=== PATIENT | female | born 1985 | race Hispanic/Latino ===

== ENCOUNTER 2019-01-05 18:55 | Emergency (ER) | payer OTHER ==
[2019-01-05 19:24] VITALS: BMI 25.6
[2019-01-05] MEDS ORDERED: Lactated Ringer's 1,000 ML IV SCH (20:15)
[2019-01-05 20:26] LABS: BASO % 0.2 % (0.0-2.0); EOS % 0.1 % (0.0-4.0); HEMOGLOBIN 11.8 g/dL (12.0-16.0); LYMPH # 1.1 K/uL (1.0-4.3); LYMPH % 7.3 % (20.0-40.0); MEAN CELL VOLUME 87.4 fl (81.0-99.0); MEAN CORPUSCULAR HGB CONC 33.1 g/dL (33.0-37.0); MEAN PLATELET VOLUME 8.1 fl (7.2-11.7); MONO # 0.8 K/uL (0.0-0.8); MONO % 5.5 % (0.0-10.0); NEUT # 12.9 K/uL (1.8-7.0); NEUT % 86.9 % (50.0-75.0); PLATELET COUNT 149 K/uL (130-400); RBC 4.06 Mil/uL (3.80-5.20); RED CELL DISTRIBUTION WIDTH 14.5 % (11.5-14.5); WHITE BLOOD COUNT 14.9 K/uL (4.8-10.8)
[2019-01-05 20:35] LABS: ALB/GLOB RATIO 1.3 (1.0-2.1); ALBUMIN 3.8 g/dL (3.5-5.0); ALT/SGPT 18 U/L (9-52); AMYLASE 84 U/L (30-110); AST/SGOT 21 U/L (14-36); BLOOD UREA NITROGEN 7 mg/dl (7-17); CALCIUM 8.6 mg/dL (8.4-10.2); GFR NON-AFRICAN AMERICAN > 60; LIPASE 61 U/L (23-300)
[2019-01-05 20:58] LABS: EOSINOPHIL 1 % (0-7); LYMPHOCYTE 8 % (20-50); MONOCYTE 3 % (0-10); NEUTROPHIL 86 % (42-75); TOTAL CELLS COUNTED 100
[2019-01-05 20:59] LABS: BANDS 2 % (0-2); HYPOCHROMIC SLIGHT; PLATELET ESTIMATE NORMAL (NORMAL)
[2019-01-06 01:47] VITALS: BP 104/67; PULSE 100; TEMP 97.9; O2SAT 100
--- NOTE | 2019-01-06 12:23 | OBHP ---
Datetime: 01/05/2019 23:14 IP Adm Impression: Term, intrauterine ; No Active Labor IP Admit Plan: Observation/Evaluation; Discharge home Admit Comment, IP Provider: 33-year-old -0-0-2 at 35 weeks gestational age complains of episode of nausea and vomiting and diarrhea after eating dinner approximately 2 hours ago. Patient denies a ny fevers or chills, contractions, vaginal bleeding, leakage of fluids. Patient reports that she is not nauseous at this time. Past medical history denies Past surgical history , laparoscopy Medications denies No known drug allergies Obstetrical history x1, x1 Social history denies tobacco, drugs, alcohol Physical exam unremarkable, refer to physical exam findings Assessment: G3, P2 at 35 weeks gestational age with gastroenteritis, heart tracing category 1, no eviden ce of labor at this time, normal labs Plan: Patient discharged home with labor precautions. Patient will follow-up this week as marilynn martinez Pelvic Type - PN: Adequate Extremities - PN: Normal Abdomen - PN: Normal Back - PN: Normal Breast - PN: Normal Lungs - PN: Normal Heart - PN: Normal Thyroid - PN: Normal Neurologic - PN: Normal HEENT - PN: Normal General - PN: Normal FHR - Baseline A Provider: 120s-130s Membranes, Provider: Intact Contraction Comments Provider: q2-5min EGA AdmitDate IP: 35.0 Vital Signs Provider: Reviewed; Within Normal Limits IP Chief Complaint: Illness; Maternal discomfort NICHD Variability Prov Fetus A: Moderate 6-25bpm NICHD Accel Fetus A IP Provider: 15X15 FHR Category Provider Fetus A: Category I NICHD Decel Fetus A IP Provider: None Dilatation, Provider: 1 Effacement, Provider: long Station, Provider: high Genitourinary Exam: Normal DTRs - PN: Normal
== END 2019-01-05 21:35 | disposition home or self-care (01) ==
LOC: H.EROB2 18:55
DX: O26.93 Pregnancy related conditions, unspecified, third trimester (principal); K52.9 Noninfective gastroenteritis and colitis, unspecified; Z3A.35 35 weeks gestation of pregnancy; O47.03 False labor before 37 completed weeks of gestation, third trimester
CPT/HCPCS: 80053; 82150; 83690; 85025; 99283; J7120

== ENCOUNTER 2019-02-04 18:24 | Inpatient (IN) | payer OTHER ==
[2019-02-04 19:10] VITALS: BMI 26.0
[2019-02-04] MEDS ORDERED: AMPicillin 2 GM in Sodium Chloride 0.9% 100 ML IVPB ONE (19:10)
[2019-02-04] MEDS ORDERED: AMPicillin 1 GM in Sodium Chloride 0.9% 100 ML IVPB SCH (19:15)
--- NOTE | 2019-02-04 19:21 | OBADHP ---
Datetime: 02/04/2019 19:15 Admit Comment, IP Provider: A: 39 1/7 wk, early active labor TOALC, HX successful FHT cat 1 BOW intact, GBS pos, NKDA pt coping with labor Low risk CNM client in collaboration with physician PRN for TOLAC P: Admit to L_D Continuous EFM IV to saline lock Amp 2 gm bolus, Amp 1gm Q4 hr thereafter PRN until delivery Ambulate as desires Anticipate more active labor and Nan Malcolm CNM Pelvic Type - PN: Adequate Extremities - PN: Normal Abdomen - PN: Normal Back - PN: Normal Breast - PN: Normal Lungs - PN: Normal Heart - PN: Normal Thyroid - PN: Normal Neurologic - PN: Normal HEENT - PN: Normal General - PN: Normal Presentation-Admit: Vertex FHR - Baseline A Provider: 125 Membranes, Provider: Intact Contraction Comments Provider: q3-4 min IP Hx Assessment: The History has been Reviewed and is Current Vital Signs Provider: Reviewed IP Chief Complaint: Uterine contractions; Other NICHD Variability Prov Fetus A: Moderate 6-25bpm NICHD Accel Fetus A IP Provider: [id number] FHR Category Provider Fetus A: Category I NICHD Decel Fetus A IP Provider: None Dilatation, Provider: 4 Effacement, Provider: 80 Station, Provider: -1 Genitourinary Exam: Normal DTRs - PN: Normal EGA AdmitDate IP: 39.1 IP Adm Impression: Term, intrauterine ; Active labor IP Admit Plan: Admit to unit; Initiate labor protocol
[2019-02-04 19:44] LABS: BASO % 0.4 % (0.0-2.0); EOS % 0.4 % (0.0-4.0); HEMOGLOBIN 11.5 g/dL (12.0-16.0); LYMPH # 1.6 K/uL (1.0-4.3); LYMPH % 18.1 % (20.0-40.0); MEAN CELL VOLUME 85.4 fl (81.0-99.0); MEAN CORPUSCULAR HEMOGLOBIN 28.6 pg (27.0-31.0); MEAN CORPUSCULAR HGB CONC 33.5 g/dL (33.0-37.0); MEAN PLATELET VOLUME 8.4 fl (7.2-11.7); MONO # 0.5 K/uL (0.0-0.8); MONO % 5.8 % (0.0-10.0); NEUT # 6.6 K/uL (1.8-7.0); NEUT % 75.3 % (50.0-75.0); NRBC % 0.2 % (0.0-0.0); RBC 4.03 Mil/uL (3.80-5.20); RED CELL DISTRIBUTION WIDTH 15.9 % (11.5-14.5); WHITE BLOOD COUNT 8.7 K/uL (4.8-10.8)
--- NOTE | 2019-02-04 20:48 | OBPN ---
Datetime: 02/04/2019 20:15 IP Progress Impression: Normal progression of labor IP Informed Consent Obtain: Vaginal After IP Progress Plan: Continue present management Contraction Comments Provider: stronger when walking FHR - Baseline A Provider: 125 IP Progress Note Comment: A: Normal progress of labor- cervix moving more anterior and thinning FHT cat 1 P: CNM held cervix open and did rebozo positioning, enc pt movement to keep contractions close PO hydration with water Expectant management, can consider AROM if lack of progress noted Nan Malcolm CNM Vital Signs Provider: Reviewed NICHD Accel Fetus A IP Provider: 15X15 FHR Category Provider Fetus A: Category I NICHD Variability Prov Fetus A: Moderate 6-25bpm Dilatation, Provider: 4 Effacement, Provider: 90 Station, Provider: -1 NICHD Decel Fetus A IP Provider: None Datetime: 02/04/2019 19:15 Membranes, Provider: Intact Presentation-Admit: Vertex
--- NOTE | 2019-02-04 20:50 | OBPN ---
Datetime: 02/04/2019 19:50 IP Progress Note Comment: PC with Dr Corona to review pt admission and status. Made plan to continue with TOLAC. Pt signed consent forms for TOLAC, R C/S if indicated and blood transfusion PRN.
--- NOTE | 2019-02-04 22:40 | OBPN ---
Datetime: 02/04/2019 22:37 IP Progress Impression: Normal progression of labor IP Procedures: Sterile Vag Exam IP Progress Plan: Continue present management Contraction Comments Provider: q4min, strong FHR - Baseline A Provider: 115 IP Progress Note Comment: A: Normal progress of labor- active labor FHT reassuring P: Reviewed option for AROM now, pt would like to see what one more hour will bring Enc pt to walk for now, continue with ball and position change Anticpate NICHD Accel Fetus A IP Provider: 15X15 FHR Category Provider Fetus A: Category I NICHD Variability Prov Fetus A: Moderate 6-25bpm Dilatation, Provider: 6 Effacement, Provider: 100 Station, Provider: -1 NICHD Decel Fetus A IP Provider: Early
--- NOTE | 2019-02-05 00:22 | OBPN ---
Datetime: 02/05/2019 00:20 IP Progress Impression: Normal progression of labor IP Procedures: Artificial ROM IP Progress Plan: Continue present management Contraction Comments Provider: every 3-4 min FHR - Baseline A Provider: 125 IP Progress Note Comment: A: Normal progress FHT cat 1 P: AROM to allow for descent and change to second stage Prepare for Vital Signs Provider: Reviewed NICHD Accel Fetus A IP Provider: 15X15 FHR Category Provider Fetus A: Category I NICHD Variability Prov Fetus A: Moderate 6-25bpm Dilatation, Provider: 8 Effacement, Provider: 100 Station, Provider: 0 NICHD Decel Fetus A IP Provider: None
[2019-02-05] MEDS ORDERED: Benzocaine/Menthol SPRAY TOP PRN ×2 (01:47→03:33)
--- NOTE | 2019-02-05 01:55 | OBDS ---
MATERNAL INFORMATION Estimated Blood Loss (ml): 150 Maternal Complications: None LABOR SUMMARY EDC: 02/10/2019 00:00 No. Babies in Womb: 1 Attempted: Yes Labor Anesthesia: None LABOR INFORMATION Reason for Induction: Not Applicable Onset of Labor: 02/04/2019 16:30 Group B Beta Strep: Positive Steroids Given: None Reason Steroids Not Administered: Not Applicable (Annotations: Data stored by [facility] on behalf of user) [facility]AN[facility] Membranes Rupture Method: Artificial Amniotic Fluid Color: Clear Amniotic Fluid Amount: Small Amniotic Fluid Odor: Normal VAGINAL DELIVERY Episiotomy: None Laceration Extension: N/A Laceration Type: None Laceration Repair: Not Applicable Sponge Count Correct: Yes Sharps Count Correct: Yes BABY A INFORMATION Born in Route : No PRESENTATION/POSITION BABY A Presentation: Cephalic (Annotations: bedside ultrasound done to confirm vertex position) INFANT INFORMATION BABY A Gestational Age at Delivery: 39.1
[2019-02-06 06:33] LABS: HEMOGLOBIN 10.4 g/dL (12.0-16.0); MEAN CORPUSCULAR HEMOGLOBIN 28.5 pg (27.0-31.0); MEAN CORPUSCULAR HGB CONC 33.6 g/dL (33.0-37.0); RBC 3.65 Mil/uL (3.80-5.20); RED CELL DISTRIBUTION WIDTH 15.8 % (11.5-14.5); WHITE BLOOD COUNT 10.2 K/uL (4.8-10.8)
--- NOTE | 2019-02-06 12:19 | OBPPN ---
Datetime: 02/06/2019 12:14 PP Pain Prov: Within normal limits PP Nausea Prov: Denies PP Flatus Prov: Yes PP BM Prov: Yes PP Breasts Prov: Normal PP Heart Prov: Normal PP Lungs Prov: Normal PP Abdomen/Uterus Prov: Normal PP Lochia Prov: Normal PP Vulva/Perineum Prov: Normal PP CVA Tenderness Prov: Normal PP Extremities Prov: Normal PP C/S Incision Prov: Not Applicable PP Progress Prov: Normal PP Impression Prov: Normal progression PP Plan Prov: Discharge PP Progress Note Prov: patient feels well, has not been able to rest in the hospital, desires discha rge. bleeding moderate, no clots. only crampy with . fundus u-1, firm. IP PP Procedures: None Vital Signs Provider PP: Reviewed; Within Normal Limits
[2019-02-06 20:32] VITALS: BP 115/70; PULSE 86; RESP 18; TEMP 98.2
== END 2019-02-06 15:20 | disposition home or self-care (01) | DRG 807 ==
LOC: H.EROB2 18:24 → H.L&D 20:28 → H.OB/GYN 02-05 03:30
PROVIDERS: ADMIT Nurse Practitioner Women's Health; ATTEND Nurse Practitioner Women's Health
PROC: 10E0XZZ Delivery of Products of Conception, External Approach (ICD-10-PCS; principal; 2019-02-05)
PROC: 10907ZC Drainage of Amniotic Fluid, Therapeutic from Products of Conception, Via Natural or Artificial Opening (ICD-10-PCS; 2019-02-05)
DX: O34.219 Maternal care for unspecified type scar from previous cesarean delivery (principal); Z37.0 Single live birth; O99.824 Streptococcus B carrier state complicating childbirth; Z3A.39 39 weeks gestation of pregnancy